=== PATIENT | male | born 1970 | race Caucasian/White ===

== ENCOUNTER 2019-11-27 10:46 | Emergency (ER) | payer MEDICAID ==
--- NOTE | 2019-11-27 11:37 | EDM.PDOC ---
ED HPI GENERAL MEDICAL PROBLEM - General Chief Complaint: Upper Extremity Injury/Pain Stated Complaint: NERVE PAIN IN RH Time Seen by Provider: 11/27/19 11:15 Source of Information: Reports: Patient, RN History Limitations: Reports: Other (no old records) - History of Present Illness INITIAL COMMENTS - FREE TEXT/NARRATIVE: 49 yo male with an old R arm/shoulder injury has intermittent shooting/nerve pain in his R arm. He is from the [place] and will be in this area for about a week. He states he's had an extensive work up and the only thing that helps is hydrocodone. He has had gabapentin in the past without benefit. Thinks he is getting the pain more often recently. Onset: Today Onset Date: 11/27/19 Duration: Hour(s):, Intermittent, Waxing/Waning Location: Reports: Upper Extremity, Right Quality: Reports: Other (shooting) Severity: Moderate Improves with: Reports: Medication Worsens with: Reports: Other (unknown, getting worse over time) Context: Reports: Other (See HPI) Associated Symptoms: Reports: No Other Symptoms Treatments CRIMINAL INTELLIGENCE SPECIALIST: Reports: Other (see below) (none) Right Hand Pain Score (Numeric/FACES): 6 - Related Data Allergies Allergy/AdvReac Type Severity Reaction Status Date / Time No Known Allergies Allergy Verified 11/27/19 11:10 Home Meds: Home Meds Acetaminophen/HYDROcodone [[place] 325-5 MG] 1 - 2 tab PO Q6H PRN #10 tab 11/27/19 [Rx] Past Medical History Musculoskeletal History: Reports: Fracture, Other (See Below) Other Musculoskeletal History: 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 Neurological History: Reports: Head Trauma - Past Surgical History Musculoskeletal Surgical History: Reports: Other (See Below) Other Musculoskeletal Surgeries/Procedures:: tendon transfers to right arm. Social & Family History - Tobacco Use Smoking Status *Q: Light Tobacco Smoker Years of Tobacco use: 20 Packs/Tins Daily: 0.7 - Caffeine Use Caffeine Use: Reports: Soda - Recreational Drug Use Recreational Drug Use: No Review of Systems - Review of Systems Review Of Systems: See Below Constitutional: Reports: No Symptoms Musculoskeletal: Reports: No Symptoms Skin: Reports: No Symptoms Neurological: Reports: Numbness (R hand), Other (nerve pain down R arm) ED EXAM, GENERAL - Physical Exam Exam: See Below Exam Limited By: No Limitations General Appearance: Alert, WD/WN, No Apparent Distress Extremities: Other (R arm is atrophic with old scars present. ) Neurological: Alert, Oriented, CN II-XII Intact, Normal Cognition Psychiatric: Normal Affect, Normal Mood Skin Exam: Warm, Dry, Intact, Normal Color, No Rash, Other (old scars present from a major injury.) Course - Vital Signs Last Recorded V/S: Last Vital Signs Temp 36.3 C 11/27/19 11:09 Pulse 73 11/27/19 11:09 Resp 16 11/27/19 11:09 BP 128/80 11/27/19 11:09 Pulse Ox 98 11/27/19 11:09 Departure - Departure Time of Disposition: 11:36 Disposition: Home, Self-Care 01 Condition: Good Clinical Impression: Nerve pain - Discharge Information *PRESCRIPTION DRUG MONITORING PROGRAM REVIEWED*: Yes *COPY OF PRESCRIPTION DRUG MONITORING REPORT IN PATIENT SOTERO: Yes Prescriptions: Acetaminophen/HYDROcodone [[place] 325-5 MG] 1 - 2 tab PO Q6H PRN #10 tab PRN Reason: Pain Referrals: PCP,None [Primary Care Provider] - Additional Instructions: Use the [place] as needed, an Rx was sent to [facility] [place]. See your family doctor when you return home about this issue. Sepsis Event Note (ED) - Evaluation Sepsis Screening Result: No Definite Risk - Focused Exam Vital Signs: Vital Signs Temp Pulse Resp BP Pulse Ox 11/27/19 11:09 36.3 C 73 16 128/80 98 11/27/19 11:05 36.3 C 73 16 128/80 98
== END 2019-11-27 12:14 | disposition home or self-care (01) ==
LOC: JP.ED 10:46
DX: M79.2 Neuralgia and neuritis, unspecified (principal); F17.200 Nicotine dependence, unspecified, uncomplicated
CPT/HCPCS: 99283

== ENCOUNTER 2019-11-30 10:43 | Emergency (ER) | payer MEDICAID ==
[2019-11-30] MEDS ORDERED: Acetaminophen/HYDROcodone 325-5 MG Tab PO ONE (11:10)
--- NOTE | 2019-11-30 11:18 | EDM.PDOC ---
ED HPI GENERAL MEDICAL PROBLEM - General Chief Complaint: Upper Extremity Injury/Pain Stated Complaint: PAIN IN RIGHT ARM Time Seen by Provider: 11/30/19 11:05 Source of Information: Reports: Patient, Old Records History Limitations: Reports: No Limitations - History of Present Illness INITIAL COMMENTS - FREE TEXT/NARRATIVE: 49 yo male was seen here a couple days ago for nerve pain in his R arm. This has been getting more frequent and severe over the past few months. Is working locally for up to another week. Was give #10 Armbrust recently that makes the pain tolerable, but he is now out. Is from the [facility]. Has a pHx of trauma to that arm. Onset: Unknown/Unsure Duration: Week(s):, Getting Worse Location: Reports: Upper Extremity, Right Quality: Reports: Burning Severity: Severe (at times) Improves with: Reports: Medication Worsens with: Reports: Other (? time) Context: Reports: Other (See HPI) Associated Symptoms: Reports: No Other Symptoms Treatments INSIDE STEWARD/STEWARDESS: Reports: Other (see below) (none) Right Arm Pain Score (Numeric/FACES): 8 - Related Data Allergies Allergy/AdvReac Type Severity Reaction Status Date / Time No Known Allergies Allergy Verified 11/27/19 11:10 Home Meds: Home Meds Acetaminophen/HYDROcodone [[place] 325-5 MG] 1 - 2 tab PO Q6H PRN #10 tab 11/27/19 [Rx] Acetaminophen/HYDROcodone [[place] 325-5 MG] 1 - 2 tab PO Q6H PRN #27 tab 11/30/19 [Rx] Past Medical History Musculoskeletal History: Reports: Fracture, Other (See Below) Other Musculoskeletal History: 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 Neurological History: Reports: Head Trauma - Past Surgical History Musculoskeletal Surgical History: Reports: Other (See Below) Other Musculoskeletal Surgeries/Procedures:: tendon transfers to right arm. Social & Family History - Caffeine Use Caffeine Use: Reports: Soda Review of Systems - Review of Systems Review Of Systems: See Below Constitutional: Reports: No Symptoms Skin: Reports: No Symptoms Neurological: Reports: Other (intermittent shooting pain in R forearm and hand) ED EXAM, GENERAL - Physical Exam Exam: See Below Exam Limited By: No Limitations General Appearance: Alert, WD/WN, Mild Distress Extremities: Other (R arm is atrophic with scars present. ) Neurological: Alert, Oriented, CN II-XII Intact, Normal Cognition, No Motor/Sensory Deficits Psychiatric: Normal Affect, Normal Mood Skin Exam: Warm, Dry, Intact, Normal Color, No Rash Course - Vital Signs Last Recorded V/S: Last Vital Signs Temp 36.5 C 11/30/19 10:59 Pulse 62 11/30/19 10:59 Resp 18 11/30/19 10:59 BP 120/78 11/30/19 10:59 Pulse Ox 96 11/30/19 10:59 - Orders/Labs/Meds Meds: Medications Discontinued Medications Generic Name Dose Route Start Last Admin Trade Name Freq PRN Reason Stop Dose Admin Hydrocodone Bitart/Acetaminophen 1 tab 11/30/19 11:10 [place] 325-5 Mg PO 11/30/19 11:11 ONETIME ONE Departure - Departure Time of Disposition: 11:25 Disposition: Home, Self-Care 01 Condition: Fair Clinical Impression: Nerve pain - Discharge Information *PRESCRIPTION DRUG MONITORING PROGRAM REVIEWED*: Yes *COPY OF PRESCRIPTION DRUG MONITORING REPORT IN PATIENT SOTERO: Yes Prescriptions: Acetaminophen/HYDROcodone [[place] 325-5 MG] 1 - 2 tab PO Q6H PRN #27 tab PRN Reason: Pain Referrals: PCP,None [Primary Care Provider] - Additional Instructions: Use hydrocodone as needed. Recheck back home as soon as possible. No driving if taking more than one hydrocodone at a time. Sepsis Event Note (ED) - Focused Exam Vital Signs: Vital Signs Temp Pulse Resp BP Pulse Ox 11/30/19 10:59 36.5 C 62 18 120/78 96
== END 2019-11-30 11:56 | disposition home or self-care (01) ==
LOC: JP.ED 10:43
DX: M79.2 Neuralgia and neuritis, unspecified (principal)
CPT/HCPCS: 99283; A9270